=== PATIENT | female | born 1955 | race Caucasian/White ===

== ENCOUNTER → 2016-12-21 | Outpatient (CLI) | payer MEDICARE, MEDICAID ==
[~2016-12-21] MED LIST: ALBU17IN INH; BREO1INH IN; CALC1TAB40 PO; CLAR10CA3 PO; FISH1000 PO; HYDR12.55 PO; LISI10TA4 PO; NEUR100C PO; RANI150T PO; TRAM50TA2 PO; TRAZ50TA11 PO; VITA100067 PO; VITA100L PO; XANA0.5T PO; ZANA4CAP PO
--- NOTE | 2016-12-21 13:14 | REP ---
REASON: Low back pain and right lower extremity radicular symptoms. Comparison lumbar MRI: None. There is loss of disc hydrational signal L2-3 through L4-5. Loss of disc space height is seen at L2-3. The marrow signal is within normal limits. There is no abnormal signal seen in the imaged portion of the spinal cord. The conus ends at T12. Vertebral body height and alignment is within normal limits. At the L1-2 level, there is no disc herniation, foraminal narrowing, or central canal stenosis. Mild degenerative facet joint changes are present bilaterally with mild thickening of the ligamentum flava. At the L2-3 level, there is a broad based annular bulge seen with degenerative facet joint changes bilaterally and thickening of the ligamentum flava. There is flattening and straightening of the anterior surface of the thecal sac. There is no foraminal narrowing or disc extrusion. At the L3-4 level, there is a broad based anular bulge seen in conjunction with degenerative facet joint changes bilaterally and thickening of the ligamentum flava. There is no disc herniation, foraminal narrowing, or central canal stenosis. At the L4-5 level, there is a broad based annular bulge which flattens and straightens the anterior surface of the thecal sac. Degenerative facet joint changes are present bilaterally. There is no disc herniation, foraminal narrowing, or nano central canal stenosis. At the L5-S1 level, there is no abnormality. There is no disc herniation, foraminal narrowing, or central canal stenosis. IMPRESSION: Multilevel discogenic changes and related findings with degenerative facet joint changes as described above. Signed by Chandan Conrad DO 12/21/2016 03:43 P
== END ==
LOC: M PLARAD 10:31
PROVIDERS: ATTEND Psychiatry & Neurology Neurology
DX: M54.5 Low back pain (principal)

== ENCOUNTER → 2017-08-23 | Outpatient (CLI) | payer OTHER, MEDICAID | LOC: M PLARAD 14:23 | DX: M47.812 Spondylosis without myelopathy or radiculopathy, cervical region (principal); M50.221 Other cervical disc displacement at C4-C5 level; M50.31 Other cervical disc degeneration, high cervical region | CPT/HCPCS: 72141 ==

== ENCOUNTER → 2022-08-11 | Outpatient (CLI) | payer MEDICARE, MEDICAID ==
[~2022-08-11] MED LIST changes: +LISI10TA22 PO; -LISI10TA4 PO; +TRAZ-252 PO; -TRAZ50TA11 PO
== END ==
LOC: M RAD 12:51
PROVIDERS: ATTEND Physician Assistant
DX: M54.2 Cervicalgia (principal); M54.30 Sciatica, unspecified side

== ENCOUNTER → 2022-12-17 | Outpatient (CLI) | payer MEDICARE, MEDICAID | LOC: M PLAIMG 09:23 | PROVIDERS: ATTEND Physician Assistant | DX: R93.89 Abnormal findings on diagnostic imaging of other specified body structures (principal) ==

== ENCOUNTER → 2024-02-03 | Outpatient (CLI) | payer MEDICAID, MEDICARE ==
[~2024-02-03] MED LIST changes: +OMEGA-3 1000MG CAPSULE ONE
== END ==
LOC: M PLAIMG 10:07
PROVIDERS: ATTEND Physician Assistant
DX: R22.2 Localized swelling, mass and lump, trunk (principal); Z53.9 Procedure and treatment not carried out, unspecified reason